=== PATIENT | female | born 1990 | race Caucasian/White ===

== ENCOUNTER 2019-06-15 17:15 | Inpatient (IN) | payer OTHER ==
[~2019-06-15] VITALS: Ht 167.6 cm; Wt 134.0 kg
[2019-06-15] MEDS: LACTATED RINGERS 1,000 ML IV SCH ×2 (05:00→21:00)
[~2019-06-15 17:15] MED LIST: PREN1TAB60 PO
[2019-06-15] MEDS ORDERED: OXYTOCIN 30U/ 0.9% NaCL 500ML 500 ML IV ONE (17:39)
[2019-06-15] MEDS ORDERED: D5%-LACTATED RINGERS 1,000 ML IV SCH (17:39)
[2019-06-15] MEDS ORDERED: LACTATED RINGERS 1,000 ML IV SCH (17:39)
[2019-06-15] MEDS ORDERED: FENTANYL/BUPIV./NS/PF 250 ML EPIDCONT SCH (17:45)
[2019-06-15] MEDS ORDERED: FENTANYL PF 100 MCG/2ML IV PRN (18:00)
[2019-06-15] MEDS ORDERED: ONDANSETRON 2MG/ML, 2ML IVPush PRN (18:00)
[2019-06-15] MEDS ORDERED: CALCIUM CARBONATE 500 MG TAB.CHEW PO PRN (18:00)
[2019-06-15] MEDS ORDERED: FENTANYL PF 500 MCG, BUPIVACAINE/PF 0.5%, 30ML 62.5 ML in SODIUM CHLORIDE 0.9% 177.5 ML EPIDCONT SCH ×2 (18:00→19:49)
[2019-06-15] MEDS ORDERED: FENTANYL PF 100 MCG/2ML IVPush PRN (18:00)
[2019-06-15] MEDS ORDERED: TERBUTALINE 1 MG/ML, 1ML IVPush PRN (18:00)
[2019-06-15] MEDS ORDERED: TERBUTALINE 1 MG/ML, 1ML SQ PRN (18:00)
[2019-06-15 18:45] LABS: BASOPHILS # (AUTO) 0.03 x10^3/uL (0-0.1); BASOPHILS % (AUTO) 0 % (0-1); EOSINOPHILS # (AUTO) 0.12 x10^3/uL (0-0.4); EOSINOPHILS % (AUTO) 1 % (1-7); LYMPHOCYTES # (AUTO) 1.84 x10^3/uL (1-3.4); LYMPHOCYTES % (AUTO) 20 % (22-44); MD NO; MEAN CORPUSCULAR HEMOGLOBIN 27.1 pg (27.0-34.8); MEAN CORPUSCULAR HGB CONC 33.3 g/dL (32.4-35.8); MEAN CORPUSCULAR VOLUME 81.3 fL (80-100); MEAN PLATELET VOLUME 8.4 fL (7.4-10.4); MONOCYTES # (AUTO) 0.38 x10^3/uL (0.2-0.8); MONOCYTES % (AUTO) 4 % (2-9); NEUTROPHILS # (AUTO) 6.65 x10^3/uL (1.8-6.8); NEUTROPHILS % (AUTO) 74 % (42-75); PLATELET COUNT 297 x10^3/uL (130-400); RED BLOOD COUNT 4.01 x10^6/uL (3.82-5.3); RED CELL DISTRIBUTION WIDTH 17.3 % (9.6-15.2)
[2019-06-15] MEDS ORDERED: NEWBORN KIT ONE (19:06)
[2019-06-15] MEDS ORDERED: OXYTOCIN 30U/ 0.9% NaCL 500ML 500 ML ONE (19:06)
[2019-06-15] MEDS ORDERED: BUPIVACAINE 0.25% ONE (19:51)
[2019-06-15] MEDS ORDERED: LACTATED RINGERS 1,000 ML IVBOLUS PRN (20:00)
[2019-06-15] MEDS ORDERED: NALOXONE 0.4 MG/ML, 1ML IVPush PRN (20:00)
[2019-06-15] MEDS ORDERED: EPHEDRINE 50 MG/ML, 1ML IVPush PRN (20:00)
[2019-06-15] MEDS ORDERED: OXYTOCIN 30U/ 0.9% NaCL 500ML 500 ML IV PRN (20:38)
[2019-06-16] MEDS ORDERED: ACETAMINOPHEN 325 MG TABLET ONE (08:51)
[2019-06-16] MEDS ORDERED: ACETAMINOPHEN 325 MG TABLET PO PRN ×3 (09:00→12:00)
[2019-06-16] MEDS ORDERED: OXYTOCIN 30U/ 0.9% NaCL 500ML 500 ML ONE (11:43)
[2019-06-16] MEDS: OXYTOCIN 30U/ 0.9% NaCL 500ML 500 ML IV SCH ×2 (11:44→21:44)
[2019-06-16] MEDS ORDERED: SIMETHICONE 80 MG CHEW TAB PO PRN (12:00)
[2019-06-16] MEDS ORDERED: MISOPROSTOL 200 MCG TABLET SL PRN (12:00)
[2019-06-16] MEDS ORDERED: OXYcodone/APAP 5/325MG TABLET PO PRN (12:00)
[2019-06-16] MEDS ORDERED: CARBOPROST TROMETHAMINE 250 MCG/ML, 1ML IM PRN (12:00)
[2019-06-16] MEDS ORDERED: METHYLERGONOVINE 0.2 MG/ML IM PRN (12:00)
[2019-06-16] MEDS ORDERED: IBUPROFEN 600 MG TABLET ONE (12:54)
[2019-06-16] MEDS: IBUPROFEN 600 MG TABLET PO PRN (12:55)
[2019-06-16 16:30] VITALS: BP 130/83
[2019-06-16 17:25] VITALS: BP 127/76
[2019-06-16 19:55] VITALS: BP 127/85
[2019-06-16 20:33] LABS: BASOPHILS # (AUTO) 0.03 x10^3/uL (0-0.1); BASOPHILS % (AUTO) 0 % (0-1); EOSINOPHILS # (AUTO) 0.11 x10^3/uL (0-0.4); EOSINOPHILS % (AUTO) 1 % (1-7); LYMPHOCYTES # (AUTO) 1.67 x10^3/uL (1-3.4); LYMPHOCYTES % (AUTO) 12 % (22-44); MEAN CORPUSCULAR HEMOGLOBIN 27.2 pg (27.0-34.8); MEAN CORPUSCULAR HGB CONC 33.4 g/dL (32.4-35.8); MEAN CORPUSCULAR VOLUME 81.4 fL (80-100); MEAN PLATELET VOLUME 8.4 fL (7.4-10.4); MONOCYTES # (AUTO) 0.67 x10^3/uL (0.2-0.8); MONOCYTES % (AUTO) 5 % (2-9); NEUTROPHILS # (AUTO) 11.93 x10^3/uL (1.8-6.8); NEUTROPHILS % (AUTO) 83 % (42-75); PLATELET COUNT 303 x10^3/uL (130-400); RED BLOOD COUNT 3.57 x10^6/uL (3.82-5.3); RED CELL DISTRIBUTION WIDTH 17.2 % (9.6-15.2)
[2019-06-16 20:34] LABS: MD NO
[2019-06-17 00:25] VITALS: BP 145/94
[2019-06-17 04:30] VITALS: BP 128/83
[2019-06-17] MEDS: OXYTOCIN 30U/ 0.9% NaCL 500ML 500 ML IV SCH ×2 (07:44→17:44)
[2019-06-17 08:00] VITALS: BP 135/87
[2019-06-17] MEDS: PRENATAL VIT/IRON/FA 1 EACH TABLET PO SCH (09:00)
[2019-06-17] MEDS: IBUPROFEN 600 MG TABLET PO PRN (19:16)
[2019-06-17] MEDS: DOCUSATE 100 MG CAPSULE PO PRN (19:16)
[2019-06-17 19:54] VITALS: BP 126/88
[2019-06-18] MEDS: IBUPROFEN 600 MG TABLET PO PRN ×4 (01:54→22:15)
[2019-06-18] MEDS: OXYTOCIN 30U/ 0.9% NaCL 500ML 500 ML IV SCH ×2 (03:44→13:44)
[2019-06-18 08:00] VITALS: BP 151/95
[2019-06-18] MEDS: DOCUSATE 100 MG CAPSULE PO PRN ×2 (08:32→22:15)
[2019-06-18] MEDS: PRENATAL VIT/IRON/FA 1 EACH TABLET PO SCH (08:32)
[2019-06-18 10:49] VITALS: BP 136/85
[2019-06-18 15:41] VITALS: BP 143/90
[2019-06-18 19:47] VITALS: BP 142/92
[2019-06-19 08:00] VITALS: BP 130/79
[2019-06-19] MEDS: IBUPROFEN 600 MG TABLET PO PRN (08:10)
[2019-06-19] MEDS: OXYcodone/APAP 5/325MG TABLET PO PRN ×2 (08:11→09:35)
[2019-06-19] MEDS: PRENATAL VIT/IRON/FA 1 EACH TABLET PO SCH (08:11)
[2019-06-19] MEDS: DOCUSATE 100 MG CAPSULE PO PRN (08:11)
[2019-06-19] MEDS ORDERED: IBUP-1222 PO (09:11)
[2019-06-19] MEDS ORDERED: PRED20TA PO (09:12)
== END 2019-06-19 10:10 | disposition home or self-care (01) | DRG 807 ==
LOC: LDOP 17:15 → LDIP 17:42 → 2NW 06-16 15:12 → LDIP 06-16 15:22 → 2NW 06-16 16:06
PROVIDERS: ADMIT Obstetrics & Gynecology Maternal & Fetal Medicine; ATTEND Obstetrics & Gynecology Maternal & Fetal Medicine
PROC: 10E0XZZ Delivery of Products of Conception, External Approach (ICD-10-PCS; principal; 2019-06-16)
PROC: 0KQM0ZZ Repair Perineum Muscle, Open Approach (ICD-10-PCS; 2019-06-16)
PROC: 3E0R3BZ Introduction of Anesthetic Agent into Spinal Canal, Percutaneous Approach (ICD-10-PCS; 2019-06-16)
PROC: 00HU33Z Insertion of Infusion Device into Spinal Canal, Percutaneous Approach (ICD-10-PCS; 2019-06-16)
DX: O99.214 Obesity complicating childbirth (principal); Z37.0 Single live birth; O70.1 Second degree perineal laceration during delivery; Z3A.39 39 weeks gestation of pregnancy; E66.9 Obesity, unspecified
CPT/HCPCS: 36415; 72190; S0020; 72148; 82962; 85025; 86592; 86850; 86900; G0378; J3010; J3490; J2590; J7050; J7120; J7512

== ENCOUNTER 2019-08-26 22:51 | Inpatient (IN) | payer OTHER ==
[~2019-08-26] VITALS: Ht 167.6 cm; Wt 116.0 kg
[~2019-08-26 22:51] MED LIST changes: +IBUP-1222 PO; +PRED20TA PO
--- NOTE | 2019-08-26 23:07 | NUR ---
EKG DONE IN TRIAGE. PT PROVIDED UA CUP FOR LOBBY WHILE WAITING FOR A ROOM
--- NOTE | 2019-08-26 23:27 | NUR ---
ASSUMED CARE OF PATIENT. PATIENT REPORTS BILATERAL LOWER ABD PAIN AND RIGHT FLANK PAIN WITH NAUSEA. VS STABLE. BLANKET GIVEN. NO ACUTE DISTRESS NOTED. WILL CONTINUE TO MONITOR.
[2019-08-26] MEDS ORDERED: ONDANSETRON 2MG/ML, 2ML IVPush ONE (23:30)
[2019-08-26] MEDS ORDERED: SODIUM CHLORIDE FLUSH 10ML SYR IVF ONE (23:30)
[2019-08-26] MEDS ORDERED: MORPHINE SULFATE 4 MG/ML, 1ML IVPush PRN (23:30)
[2019-08-26] MEDS ORDERED: SODIUM CHLORIDE 0.9% 1,000ML IVBOLUS ONE (23:30)
[2019-08-26] MEDS ORDERED: PROMETHAZINE 25 MG/ML, 1ML IM ONE (23:30)
[2019-08-26] MEDS ORDERED: ONDANSETRON 2MG/ML, 2ML ONE (23:49)
[2019-08-26] MEDS ORDERED: PROMETHAZINE 25 MG/ML, 1ML ONE (23:49)
[2019-08-26] MEDS ORDERED: MORPHINE SULFATE 4 MG/ML, 1ML ONE (23:50)
[2019-08-27] MEDS ORDERED: GABA300C10 PO (00:01)
--- NOTE | 2019-08-27 00:02 | NUR ---
CT PENDING NEG. BETA.
[2019-08-27 00:17] LABS: CULTURE INDICATED? NO; MICROSCOPIC NOT IND
[2019-08-27 00:29] LABS: BASOPHILS # (AUTO) 0.03 x10^3/uL (0-0.1); BASOPHILS % (AUTO) 0 % (0-1); EOSINOPHILS % (AUTO) 1 % (1-7); LYMPHOCYTES # (AUTO) 1.39 x10^3/uL (1-3.4); LYMPHOCYTES % (AUTO) 15 % (22-44); MD NO; MEAN CORPUSCULAR HGB CONC 32.8 g/dL (32.4-35.8); MEAN CORPUSCULAR VOLUME 79.2 fL (80-100); MEAN PLATELET VOLUME 8.7 fL (7.4-10.4); MONOCYTES # (AUTO) 0.62 x10^3/uL (0.2-0.8); MONOCYTES % (AUTO) 7 % (2-9); NEUTROPHILS % (AUTO) 78 % (42-75); PLATELET COUNT 303 x10^3/uL (130-400); RED BLOOD COUNT 4.29 x10^6/uL (3.82-5.3); RED CELL DISTRIBUTION WIDTH 16.8 % (9.6-15.2)
--- NOTE | 2019-08-27 00:30 | NUR ---
PT RESTING IN ROOM. NO ACUTE DISTRESS NOTED. CALL LIGHT IN PLACE. BLANKET AND PILLOW GIVEN AND LIGHTS TURNED DOWN FOR COMFORT. WILL CONTINUE TO MONITOR.
[2019-08-27 00:39] LABS: ALBUMIN 2.9 g/dL (3.4-5.0); ANION GAP 7 mmol/L (5-15); CALCIUM 8.4 mg/dL (8.5-10.1); CHLORIDE 106 mmol/L (98-107)
[2019-08-27 00:46] LABS: ALANINE AMINOTRANSFERASE 295 U/L (12-78); ALKALINE PHOSPHATASE 114 U/L (45-117); BILIRUBIN,TOTAL 2.7 mg/dL (0.2-1.0); CREATININE 0.72 mg/dL (0.55-1.02)
--- NOTE | 2019-08-27 01:15 | NUR ---
REPORT OF PT FROM KEKE MARSHALL AND ASSUMING CARE OF PT AT THIS TIME. [place] IN [facility] [place] THIS [place] FAMILY AT . PT APPEARS COMFORTABLE AT THIS TIME. WILL CONTINUE TO MONITOR PT. AWAITING ADMIT ORDERS.
--- NOTE | 2019-08-27 01:30 | NUR ---
REPORT GIVEN TO KEKE JAVIER
--- NOTE | 2019-08-27 02:54 | NUR ---
PT AMBULATES TO RESTROOM WITH STEADY GAIT. PT BACK IN [facility] AND REATTACHED TO VS MONITORS. VSS AT THIS TIME. ADMITTING HOSPITALIST AT FOR PT HISTORY AND ASSESSMENT.
--- NOTE | 2019-08-27 03:27 | NUR ---
REPORT OF PT TO KEKE FLORENTINO WHO IS TASK RN FOR THOM. ALL QUESTIONS ANSWERED. PT PREPARED FOR TRANSPORT FROM ED TO FLOOR. PT VERBALIZES UNDERSTANDING OF ROOM ASSIGNMENT. CHECO ANTONIO, AT BS FOR TRANSPORT OF PT TO FLOOR AT THIS TIME.
[2019-08-27 03:52] VITALS: BP 127/72
[2019-08-27] MEDS ORDERED: NORG1TAB6 PO (05:17)
[2019-08-27] MEDS: morphine SULFATE 10 MG/ML, 1ML IVPush PRN ×2 (05:58→09:00)
[2019-08-27] MEDS ORDERED: ONDANSETRON 2MG/ML, 2ML IVPush PRN (06:00)
[2019-08-27] MEDS ORDERED: SODIUM CHLORIDE 0.9% 2,000 ML IV SCH (06:00)
[2019-08-27] MEDS: NORGESTIMATE-ETHINYL ESTRADIOL TABLET PO SCH (07:08)
[2019-08-27 07:18] LABS: CHLORIDE 109 mmol/L (98-107)
[2019-08-27 07:32] LABS: ALANINE AMINOTRANSFERASE 267 U/L (12-78); ALBUMIN 2.6 g/dL (3.4-5.0); ALKALINE PHOSPHATASE 108 U/L (45-117); ANION GAP 5 mmol/L (5-15); BILIRUBIN,TOTAL 0.9 mg/dL (0.2-1.0); CALCIUM 8.2 mg/dL (8.5-10.1); CREATININE 0.59 mg/dL (0.55-1.02); TOTAL PROTEIN 6.5 g/dL (6.4-8.2)
[2019-08-27 08:00] VITALS: BP 130/82
[2019-08-27] MEDS ORDERED: POTASSIUM CHLORIDE 40 MEQ in SODIUM CHLORIDE 0.9% 500 ML IV ONE (09:00)
[2019-08-27 09:22] LABS: % IRON SATURATION 9 % (20-55); IRON LEVEL 29 mcg/dL (50-170); TOTAL IRON BINDING CAPACITY 318 mcg/dL (250-450); TRIGLYCERIDES 95 mg/dL (50-200)
[2019-08-27] MEDS: LACTATED RINGERS 1,000 ML IV SCH ×3 (10:18→22:17)
[2019-08-27 13:50] VITALS: BP 126/79
[2019-08-27] MEDS: OXYcodone/APAP 5/325MG TABLET PO PRN ×2 (15:03→21:23)
[2019-08-27] MEDS: CEFTRIAXONE PMX 1GM/50ML 50 ML IV SCH (16:28)
[2019-08-27] MEDS: GABAPENTIN 300 MG CAPSULE PO SCH ×2 (16:28→21:24)
[2019-08-27] MEDS: IRON SUCROSE COMPLEX 100MG/5ML IV SCH (16:29)
[2019-08-27] MEDS: METRONIDAZOLE PMX 500MG/100ML 100 ML IV SCH ×2 (17:32→23:11)
[2019-08-27 21:05] VITALS: BP 128/83
[2019-08-28 01:17] VITALS: BP 138/80
[2019-08-28] MEDS: morphine SULFATE 10 MG/ML, 1ML IVPush PRN ×3 (03:31→09:27)
[2019-08-28] MEDS: LACTATED RINGERS 1,000 ML IV SCH ×3 (04:41→17:16)
[2019-08-28] MEDS: METRONIDAZOLE PMX 500MG/100ML 100 ML IV SCH ×4 (05:47→18:15)
[2019-08-28 06:18] LABS: BASOPHILS # (AUTO) 0.02 x10^3/uL (0-0.1); BASOPHILS % (AUTO) 0 % (0-1); EOSINOPHILS # (AUTO) 0.43 x10^3/uL (0-0.4); EOSINOPHILS % (AUTO) 6 % (1-7); LYMPHOCYTES # (AUTO) 2.02 x10^3/uL (1-3.4); LYMPHOCYTES % (AUTO) 30 % (22-44); MD NO; MEAN CORPUSCULAR HGB CONC 32.4 g/dL (32.4-35.8); MEAN CORPUSCULAR VOLUME 80.2 fL (80-100); MEAN PLATELET VOLUME 8.3 fL (7.4-10.4); MONOCYTES # (AUTO) 0.36 x10^3/uL (0.2-0.8); MONOCYTES % (AUTO) 5 % (2-9); NEUTROPHILS # (AUTO) 3.97 x10^3/uL (1.8-6.8); NEUTROPHILS % (AUTO) 58 % (42-75); PLATELET COUNT 270 x10^3/uL (130-400); RED BLOOD COUNT 4.04 x10^6/uL (3.82-5.3); RED CELL DISTRIBUTION WIDTH 16.4 % (9.6-15.2)
[2019-08-28 06:30] LABS: CHLORIDE 108 mmol/L (98-107)
[2019-08-28 06:33] LABS: ANION GAP 7 mmol/L (5-15); CALCIUM 8.7 mg/dL (8.5-10.1); CREATININE 0.47 mg/dL (0.55-1.02)
[2019-08-28 07:18] VITALS: BP 129/83
[2019-08-28] MEDS: GABAPENTIN 300 MG CAPSULE PO SCH ×3 (09:00→22:19)
[2019-08-28] MEDS: NORGESTIMATE-ETHINYL ESTRADIOL TABLET PO SCH (09:00)
[2019-08-28] MEDS ORDERED: MIDAZOLAM 1 MG/ML, 2ML ONE (10:23)
[2019-08-28] MEDS ORDERED: FENTANYL PF 250 MCG/5ML ONE (10:23)
[2019-08-28] MEDS ORDERED: PROPOFOL 10 MG/ML, 20ML ONE (10:24)
[2019-08-28] MEDS ORDERED: OMNIPAQUE 350 MG/ML, 50 ML BOTTLE ONE (10:35)
[2019-08-28 10:40] LABS: HCG UR SG 1.008 (1.003-1.030)
[2019-08-28] MEDS ORDERED: HALOPERIDOL 5 MG/ML IV PRN (11:00)
[2019-08-28] MEDS ORDERED: OXYcodone 5 MG/5 ML ORAL.SOL UDC PO PRN (11:00)
[2019-08-28] MEDS ORDERED: HYDROmorphone 2 MG/ML, 1ML IVPush PRN (11:00)
[2019-08-28] MEDS ORDERED: MORPHINE SULFATE 4 MG/ML, 1ML IVPush PRN (11:00)
[2019-08-28] MEDS ORDERED: PROMETHAZINE 25 MG/ML, 1ML IV PRN (11:00)
[2019-08-28] MEDS ORDERED: FENTANYL PF 100 MCG/2ML IV PRN (11:00)
[2019-08-28] MEDS ORDERED: MEPERIDINE/PF 25MG/ML,1ML IVPush PRN (11:00)
[2019-08-28] MEDS ORDERED: OXYcodone 5 MG/5 ML ORAL.SOL UDC ONE (11:56)
[2019-08-28 14:45] VITALS: BP 126/88
[2019-08-28] MEDS: IRON SUCROSE COMPLEX 100MG/5ML IV SCH (17:14)
[2019-08-28] MEDS: CEFTRIAXONE PMX 1GM/50ML 50 ML IV SCH (17:14)
[2019-08-28] MEDS: OXYcodone/APAP 5/325MG TABLET PO PRN (17:53)
[2019-08-28 21:38] VITALS: BP 118/69
[2019-08-29] MEDS: OXYcodone/APAP 5/325MG TABLET PO PRN ×2 (00:05→13:00)
[2019-08-29] MEDS: METRONIDAZOLE PMX 500MG/100ML 100 ML IV SCH ×2 (00:19→06:15)
[2019-08-29 00:44] VITALS: BP 128/82
[2019-08-29 04:28] VITALS: BP 132/80
[2019-08-29] MEDS: LACTATED RINGERS 1,000 ML IV SCH ×2 (04:32→11:00)
[2019-08-29] MEDS ORDERED: THROMBIN 5,000 UNIT VIAL TP ONE (05:22)
[2019-08-29] MEDS ORDERED: BUPIVACAINE/PF-EPI 0.5% 1:200K ONE (05:22)
[2019-08-29 05:26] LABS: BASOPHILS # (AUTO) 0.03 x10^3/uL (0-0.1); BASOPHILS % (AUTO) 0 % (0-1); EOSINOPHILS # (AUTO) 0.01 x10^3/uL (0-0.4); EOSINOPHILS % (AUTO) 0 % (1-7); LYMPHOCYTES # (AUTO) 1.39 x10^3/uL (1-3.4); LYMPHOCYTES % (AUTO) 17 % (22-44); MD NO; MEAN CORPUSCULAR HEMOGLOBIN 25.9 pg (27.0-34.8); MEAN CORPUSCULAR HGB CONC 32.5 g/dL (32.4-35.8); MEAN CORPUSCULAR VOLUME 79.7 fL (80-100); MEAN PLATELET VOLUME 8.6 fL (7.4-10.4); MONOCYTES # (AUTO) 0.41 x10^3/uL (0.2-0.8); MONOCYTES % (AUTO) 5 % (2-9); NEUTROPHILS # (AUTO) 6.58 x10^3/uL (1.8-6.8); NEUTROPHILS % (AUTO) 78 % (42-75); PLATELET COUNT 339 x10^3/uL (130-400); RED BLOOD COUNT 4.06 x10^6/uL (3.82-5.3); RED CELL DISTRIBUTION WIDTH 16.6 % (9.6-15.2)
[2019-08-29] MEDS ORDERED: FENTANYL PF 250 MCG/5ML ONE (05:34)
[2019-08-29] MEDS ORDERED: MIDAZOLAM 1 MG/ML, 2ML ONE (05:34)
[2019-08-29 05:35] LABS: ALBUMIN 2.7 g/dL (3.4-5.0); ANION GAP 8 mmol/L (5-15); CHLORIDE 107 mmol/L (98-107)
[2019-08-29] MEDS ORDERED: KETOROLAC 30 MG/1 ML ONE (05:37)
[2019-08-29 05:39] LABS: ALANINE AMINOTRANSFERASE 137 U/L (12-78); ALKALINE PHOSPHATASE 87 U/L (45-117); BILIRUBIN,TOTAL 0.6 mg/dL (0.2-1.0); CREATININE 0.53 mg/dL (0.55-1.02); TOTAL PROTEIN 7.1 g/dL (6.4-8.2)
[2019-08-29] MEDS ORDERED: CEFOTETAN PMX 2GM/50ML 50 ML ONE (05:47)
[2019-08-29] MEDS ORDERED: CHLORHEXIDINE 15 ML UDC ONE (05:57)
[2019-08-29] MEDS ORDERED: PROMETHAZINE 25 MG/ML, 1ML IV PRN (06:00)
[2019-08-29] MEDS ORDERED: MORPHINE SULFATE 4 MG/ML, 1ML IVPush PRN (06:00)
[2019-08-29] MEDS ORDERED: HALOPERIDOL 5 MG/ML IV PRN (06:00)
[2019-08-29] MEDS ORDERED: MEPERIDINE/PF 25MG/ML,1ML IVPush PRN (06:00)
[2019-08-29] MEDS ORDERED: hydrALAzine 20 MG/ML, 1ML IV PRN (06:00)
[2019-08-29] MEDS ORDERED: OXYcodone 5 MG/5 ML ORAL.SOL UDC PO PRN (06:00)
[2019-08-29] MEDS ORDERED: LABETALOL 5MG/ML, 20ML IV PRN (06:00)
[2019-08-29] MEDS ORDERED: ACETAMINOPHEN 325 MG TABLET PO PRN (06:00)
[2019-08-29] MEDS ORDERED: ONDANSETRON 2MG/ML, 2ML ONE (06:20)
[2019-08-29] MEDS ORDERED: ROCURONIUM 10MG/ML,5ML ONE (06:20)
[2019-08-29] MEDS ORDERED: GLYCOPYRROLATE 0.2MG/1ML, 5ML ONE (06:20)
[2019-08-29] MEDS ORDERED: NEOSTIGMINE 1 MG/ML, 10ML ONE (06:20)
[2019-08-29] MEDS ORDERED: CEFAZOLIN 1,000 MG ONE (06:20)
[2019-08-29] MEDS ORDERED: DEXAMETHASONE 4 MG/ML, 1ML ONE (06:20)
[2019-08-29] MEDS ORDERED: PROPOFOL 10 MG/ML, 20ML ONE (06:20)
[2019-08-29] MEDS ORDERED: FENTANYL PF 100 MCG/2ML ONE ×2 (06:41→07:09)
[2019-08-29] MEDS ORDERED: OXYcodone 5 MG/5 ML ORAL.SOL UDC ONE (07:09)
[2019-08-29] MEDS: FENTANYL PF 100 MCG/2ML IV PRN ×2 (07:15→07:21)
[2019-08-29] MEDS ORDERED: HYDROmorphone 1 MG/ML, 1ML INJ ONE (07:22)
[2019-08-29] MEDS: HYDROmorphone 2 MG/ML, 1ML IVPush PRN ×2 (07:28→07:36)
[2019-08-29] MEDS ORDERED: ACETAMINOPHEN 650 MG/20.3 ML UDC ONE (07:51)
[2019-08-29] MEDS ORDERED: AMOXICILLIN/CLAV 875-125MG TABLET PO SCH (09:00)
[2019-08-29] MEDS: GABAPENTIN 300 MG CAPSULE PO SCH (10:11)
[2019-08-29] MEDS: NORGESTIMATE-ETHINYL ESTRADIOL TABLET PO SCH (10:12)
[2019-08-29] MEDS ORDERED: OXYC-302 PO (10:42)
[2019-08-29] MEDS ORDERED: POLY17PO5 PO (10:43)
[2019-08-29] MEDS ORDERED: AMOX1TAB12 PO (11:43)
[2019-08-29] MEDS ORDERED: FERR324T5 PO (11:43)
[2019-08-29] MEDS ORDERED: ONDA4TAB7 PO (11:43)
[2019-08-29 13:06] VITALS: BP 134/89
== END 2019-08-29 14:23 | disposition home or self-care (01) | DRG 417 ==
LOC: ED 23:41 → EDIP 08-27 02:38 → 4NE 08-27 03:35
PROVIDERS: ATTEND Internal Medicine
PROC: 0FC98ZZ Extirpation of Matter from Common Bile Duct, Via Natural or Artificial Opening Endoscopic (ICD-10-PCS; 2019-08-28)
PROC: BF131ZZ Fluoroscopy of Gallbladder and Bile Ducts using Low Osmolar Contrast (ICD-10-PCS; 2019-08-28)
PROC: 0FT44ZZ Resection of Gallbladder, Percutaneous Endoscopic Approach (ICD-10-PCS; principal; 2019-08-29 06:00)
DX: K80.61 Calculus of gallbladder and bile duct with cholecystitis, unspecified, with obstruction (principal); K85.10 Biliary acute pancreatitis without necrosis or infection; Z68.41 Body mass index [BMI] 40.0-44.9, adult; D50.9 Iron deficiency anemia, unspecified; G57.90 Unspecified mononeuropathy of unspecified lower limb; E87.6 Hypokalemia; E66.01 Morbid (severe) obesity due to excess calories; D64.9 Anemia, unspecified; E80.6 Other disorders of bilirubin metabolism; R79.89 Other specified abnormal findings of blood chemistry; Z71.3 Dietary counseling and surveillance
CPT/HCPCS: 36415; 74181; 74328; 76700; 80048; 80053; 80307; 81003; 81025; 82728; 83540; 83550; 83690; 84478; 84703; 85025; 87040; 88304; 93005; 96361; 96372; 96374; G0378; J0690; J0696; J1100; J1170; J1756; J1885; J2250; J2405; J2550; J2704; J2710; J3010; J3480; Q9967; C1769; J2270; J3490; J7030; J7040; J7120

== ENCOUNTER → 2019-11-17 | Outpatient (CLI) | payer OTHER ==
[~2019-11-17] MED LIST changes: +AMOX1TAB12 PO; +FERR324T5 PO; +GABA300C10 PO; +GADOTERATE 10 MMOL/20 ML SYR ONE; +NORG1TAB6 PO; +ONDA4TAB7 PO; +OXYC-302 PO; +POLY17PO5 PO
== END | disposition home or self-care (01) ==
LOC: CFH 12:43
PROVIDERS: ATTEND Psychiatry & Neurology Neurology
DX: M51.27 Other intervertebral disc displacement, lumbosacral region (principal); M47.817 Spondylosis without myelopathy or radiculopathy, lumbosacral region; M48.07 Spinal stenosis, lumbosacral region
CPT/HCPCS: 72157; 72158; A9575

== ENCOUNTER 2019-11-29 11:57 | Emergency (ER) | payer OTHER ==
[~2019-11-29] VITALS: Ht 170.2 cm; Wt 112.6 kg
[~2019-11-29 11:57] MED LIST changes: -GADOTERATE 10 MMOL/20 ML SYR ONE
--- NOTE | 2019-11-29 12:35 | NUR ---
Assumed care of patient. C/O RLQ pain radiating to right flank since Satuday. C/O N/V. Will continue to monitor.
[2019-11-29 12:59] LABS: HCG UR SG 1.006 (1.003-1.030); MICROSCOPIC NOT IND
[2019-11-29] MEDS ORDERED: SODIUM CHLORIDE FLUSH 10ML SYR IVF ONE (13:00)
[2019-11-29] MEDS ORDERED: MORPHINE SULFATE 4 MG/ML, 1ML IVPush PRN (13:00)
[2019-11-29] MEDS ORDERED: ONDANSETRON 2MG/ML, 2ML IVPush ONE (13:00)
[2019-11-29] MEDS ORDERED: MORPHINE SULFATE 4 MG/ML, 1ML ONE (13:11)
[2019-11-29] MEDS ORDERED: ONDANSETRON 2MG/ML, 2ML ONE (13:11)
[2019-11-29 13:31] LABS: BASOPHILS # (AUTO) 0.04 x10^3/uL (0-0.1); BASOPHILS % (AUTO) 0 % (0-1); EOSINOPHILS # (AUTO) 0.23 x10^3/uL (0-0.4); EOSINOPHILS % (AUTO) 2 % (1-7); LYMPHOCYTES # (AUTO) 1.98 x10^3/uL (1-3.4); LYMPHOCYTES % (AUTO) 17 % (22-44); MD NO; MEAN CORPUSCULAR HEMOGLOBIN 26.9 pg (27.0-34.8); MEAN CORPUSCULAR HGB CONC 32.5 g/dL (32.4-35.8); MEAN PLATELET VOLUME 8.2 fL (7.4-10.4); MONOCYTES # (AUTO) 0.62 x10^3/uL (0.2-0.8); MONOCYTES % (AUTO) 5 % (2-9); NEUTROPHILS # (AUTO) 9.13 x10^3/uL (1.8-6.8); NEUTROPHILS % (AUTO) 76 % (42-75); PLATELET COUNT 399 x10^3/uL (130-400); RED BLOOD COUNT 4.64 x10^6/uL (3.82-5.3); RED CELL DISTRIBUTION WIDTH 14.1 % (9.6-15.2)
[2019-11-29 13:43] LABS: ALANINE AMINOTRANSFERASE 22 U/L (12-78); ALBUMIN 3.5 g/dL (3.4-5.0); ANION GAP 10 mmol/L (5-15); CALCIUM 8.8 mg/dL (8.5-10.1); CHLORIDE 103 mmol/L (98-107); CREATININE 1.08 mg/dL (0.55-1.02)
[2019-11-29 13:45] LABS: ALKALINE PHOSPHATASE 55 U/L (45-117); BILIRUBIN,TOTAL 0.5 mg/dL (0.2-1.0); TOTAL PROTEIN 8.4 g/dL (6.4-8.2)
--- NOTE | 2019-11-29 13:52 | NUR ---
Patient reports decreased pain. Refusing pain meds at this time. VSS.
[2019-11-29] MEDS ORDERED: KETOROLAC 30 MG/1 ML ONE (14:39)
--- NOTE | 2019-11-29 14:47 | NUR ---
Toradol admin. No other needs.
[2019-11-29] MEDS ORDERED: OMNIPAQUE 350 MG/ML, 100ML BOTTLE ONE (14:48)
[2019-11-29] MEDS ORDERED: KETOROLAC 30 MG/1 ML IVPush ONE (15:00)
[2019-11-29 15:05] VITALS: BP 127/73
--- NOTE | 2019-11-29 15:06 | NUR ---
Patient/Caregiver given discharge instructions and they have confirmed that they understand the instructions. Patient ambulatory with steady gait.
== END 2019-11-29 15:08 | disposition home or self-care (01) ==
LOC: ED 13:27
DX: N20.1 Calculus of ureter (principal); R11.2 Nausea with vomiting, unspecified
CPT/HCPCS: 36415; 74177; 80053; 81003; 81025; 85025; 96374; 96375; 99285; J1885; J2270; J2405; Q9967

== ENCOUNTER 2020-05-30 17:37 | Inpatient (IN) | payer OTHER ==
[~2020-05-30] VITALS: Ht 170.2 cm; Wt 116.2 kg
[~2020-05-30 17:37] MED LIST changes: -OXYC-302 PO; +OXYC1TAB14 PO
[2020-05-30] MEDS ORDERED: SODIUM CHLORIDE FLUSH 10ML SYR IVF ONE (18:00)
[2020-05-30] MEDS ORDERED: SODIUM CHLORIDE 0.9% 1,000ML IVBOLUS ONE (18:00)
--- NOTE | 2020-05-30 18:14 | NUR ---
PT C/O CHEST INTERMITTENT CP AND SOB SINCE DIAGNOSED WITH COVID ON 05/13/20.
[2020-05-30 18:15] LABS: BASOPHILS % (AUTO) 1 % (0-1); EOSINOPHILS % (AUTO) 3 % (1-7); LYMPHOCYTES % (AUTO) 30 % (22-44); MEAN CORPUSCULAR HEMOGLOBIN 27.5 pg (27.0-34.8); MEAN PLATELET VOLUME 8.1 fL (7.4-10.4); MONOCYTES % (AUTO) 6 % (2-9); NEUTROPHILS % (AUTO) 62 % (42-75); PLATELET COUNT 322 x10^3/uL (130-400); RED CELL DISTRIBUTION WIDTH 14.5 % (9.6-15.2)
[2020-05-30 18:16] LABS: MD NO
[2020-05-30 18:27] LABS: ALANINE AMINOTRANSFERASE 35 U/L (12-78); ALBUMIN 3.2 g/dL (3.4-5.0); ANION GAP 6 mmol/L (5-15); CALCIUM 8.4 mg/dL (8.5-10.1); CHLORIDE 108 mmol/L (98-107); CREATININE 0.73 mg/dL (0.55-1.02)
[2020-05-30 18:31] LABS: ALKALINE PHOSPHATASE 62 U/L (45-117); BILIRUBIN,TOTAL 0.2 mg/dL (0.2-1.0); TOTAL PROTEIN 7.8 g/dL (6.4-8.2); TROPONIN I < 0.015 ng/mL (0.000-0.045)
--- NOTE | 2020-05-30 18:37 | NUR ---
IV PLACED, IV FLUIDS INFUSING.
--- NOTE | 2020-05-30 19:19 | NUR ---
PT IN CT.
[2020-05-30] MEDS ORDERED: OMNIPAQUE 350 MG/ML, 100ML BOTTLE ONE (19:33)
[2020-05-30 20:17] LABS: MICROSCOPIC NOT IND
[2020-05-30 20:19] LABS: INTERNATIONAL NORMALIZED RATIO 0.94 (0.93-1.1); PROTHROMBIN TIME 10.1 Seconds (9.6-11.5)
--- NOTE | 2020-05-30 20:27 | NUR ---
LOVENOX REQUESTED FROM PHARMACY.
[2020-05-30] MEDS ORDERED: ENOXAPARIN 120MG/0.8ML SQ ONE (20:30)
[2020-05-30] MEDS ORDERED: LABETALOL 5MG/ML, 20ML IVPush PRN (21:30)
[2020-05-30] MEDS ORDERED: ACETAMINOPHEN 325 MG TABLET PO PRN (21:30)
[2020-05-30] MEDS ORDERED: ONDANSETRON 2MG/ML, 2ML IVPush PRN (21:30)
[2020-05-30] MEDS ORDERED: MELATONIN 5 MG TABLET PO PRN (21:30)
--- NOTE | 2020-05-30 21:46 | NUR ---
REPORT GIVEN TO CARINA DAVIES.
[2020-05-30 22:38] VITALS: BP 150/95
[2020-05-31 00:26] VITALS: BP 122/74
[2020-05-31 01:28] LABS: TROPONIN I < 0.015 ng/mL (0.000-0.045)
[2020-05-31 05:25] LABS: BASOPHILS % (AUTO) 0 % (0-1); EOSINOPHILS % (AUTO) 3 % (1-7); LYMPHOCYTES % (AUTO) 41 % (22-44); MEAN CORPUSCULAR HEMOGLOBIN 27.3 pg (27.0-34.8); MEAN CORPUSCULAR HGB CONC 33.5 g/dL (32.4-35.8); MEAN PLATELET VOLUME 8.3 fL (7.4-10.4); MONOCYTES % (AUTO) 5 % (2-9); NEUTROPHILS % (AUTO) 50 % (42-75); PLATELET COUNT 282 x10^3/uL (130-400); RED BLOOD COUNT 4.24 x10^6/uL (3.82-5.3); RED CELL DISTRIBUTION WIDTH 14.6 % (9.6-15.2)
[2020-05-31 05:26] LABS: MD NO
[2020-05-31 05:38] LABS: ANION GAP 5 mmol/L (5-15); CALCIUM 8.3 mg/dL (8.5-10.1); CHLORIDE 110 mmol/L (98-107)
[2020-05-31 05:45] LABS: CREATININE 0.56 mg/dL (0.55-1.02); TROPONIN I < 0.015 ng/mL (0.000-0.045)
[2020-05-31 07:09] VITALS: BP 137/87
[2020-05-31] MEDS ORDERED: RIVAROXABAN 15 MG TABLET PO SCH (08:00)
[2020-05-31] MEDS ORDERED: ENOXAPARIN 120MG/0.8ML SQ SCH (08:30)
[2020-05-31 14:11] VITALS: BP 134/85
[2020-05-31] MEDS ORDERED: RIVA15TA PO (14:30)
[2020-05-31] MEDS ORDERED: RIVA20TA PO ×3 (14:34→14:40)
== END 2020-05-31 16:39 | disposition home or self-care (01) | DRG 176 ==
LOC: ED 19:29 → INTOOBSV 20:26 → EDIP 20:26 → OBSVTOIN 20:26 → 4WST 22:20 → DCLOUNGE 05-31 16:26
PROVIDERS: ADMIT Family Medicine; ATTEND Hospitalist
DX: I26.99 Other pulmonary embolism without acute cor pulmonale (principal); Z68.41 Body mass index [BMI] 40.0-44.9, adult; E04.9 Nontoxic goiter, unspecified; E66.9 Obesity, unspecified; Z83.3 Family history of diabetes mellitus; Z90.49 Acquired absence of other specified parts of digestive tract; J45.20 Mild intermittent asthma, uncomplicated; Z86.16 Personal history of COVID-19
CPT/HCPCS: 36415; 71275; 80048; 80053; 81003; 83036; 83690; 84443; 84484; 84703; 85025; 85610; 85730; 93005; 93306; 93356; 93970; G0378; J1650; J2405; Q9967; J7030

== ENCOUNTER 2020-08-07 15:54 | Emergency (ER) | payer OTHER ==
[~2020-08-07] VITALS: Ht 170.2 cm; Wt 122.3 kg
[~2020-08-07 15:54] MED LIST changes: +RIVA15TA PO; +RIVA20TA PO
--- NOTE | 2020-08-07 16:28 | NUR ---
PT STATES SINCE YESTERDAY SHE HAS BEEN FEELING PULSES IN LEFT CHEST. REPORTS SAYING SOMETIMES IT VAGUE, SHARP, AND DULL FEELING. DENIES SOB, HEADACHE, AND TNIGLING AND NUMBNESS. STATES IT FEELS LIKE HER PE BACK IN MAY. CURRENTLY TAKING XERALTO.
--- NOTE | 2020-08-07 16:30 | NUR ---
PT REPORTS HAVING ROOT CANAL DONE LAST WEEK ON FRIDAY.
--- NOTE | 2020-08-07 16:31 | NUR ---
PT REPORTS TAKING ABX FOR TWO DAYS AND NOT FINISHING IT.
--- NOTE | 2020-08-07 16:40 | NUR ---
HAD COVID SHOT LAST FRIDAY.
[2020-08-07] MEDS ORDERED: SODIUM CHLORIDE FLUSH 10ML SYR IVF ONE (17:30)
[2020-08-07 18:17] LABS: BASOPHILS % (AUTO) 0 % (0-1); EOSINOPHILS % (AUTO) 5 % (1-7); LYMPHOCYTES % (AUTO) 28 % (22-44); MEAN CORPUSCULAR HEMOGLOBIN 25.5 pg (27.0-34.8); MEAN PLATELET VOLUME 7.7 fL (7.4-10.4); MONOCYTES % (AUTO) 8 % (2-9); NEUTROPHILS % (AUTO) 59 % (42-75); PLATELET COUNT 392 x10^3/uL (130-400); RED CELL DISTRIBUTION WIDTH 14.4 % (9.6-15.2)
[2020-08-07 18:19] LABS: MD NO
[2020-08-07 18:20] LABS: ALBUMIN 3.5 g/dL (3.4-5.0); ANION GAP 5 mmol/L (5-15); CALCIUM 8.9 mg/dL (8.5-10.1); CHLORIDE 109 mmol/L (98-107)
[2020-08-07 18:32] LABS: ALANINE AMINOTRANSFERASE 43 U/L (12-78); ALKALINE PHOSPHATASE 73 U/L (45-117); BILIRUBIN,TOTAL 0.1 mg/dL (0.2-1.0); CREATININE 0.61 mg/dL (0.55-1.02); FREE T4 (FREE THYROXINE) 0.98 ng/dL (0.76-1.46); TOTAL PROTEIN 7.8 g/dL (6.4-8.2); TROPONIN I < 0.015 ng/mL (0.000-0.045)
--- NOTE | 2020-08-07 18:58 | NUR ---
PT IS OFF UNIT IN IMAGING
[2020-08-07] MEDS ORDERED: OMNIPAQUE 350 MG/ML, 100ML BOTTLE ONE (19:17)
[2020-08-07 19:50] VITALS: BP 145/100
== END 2020-08-07 19:58 | disposition home or self-care (01) ==
LOC: ED 18:26
DX: D50.9 Iron deficiency anemia, unspecified (principal); R07.89 Other chest pain; E04.1 Nontoxic single thyroid nodule; R94.31 Abnormal electrocardiogram [ECG] [EKG]
CPT/HCPCS: 36415; 71275; 80053; 83880; 84439; 84443; 84484; 85025; 93005; 99285; Q9967

== ENCOUNTER 2020-10-19 12:41 | Outpatient (CLI) | payer OTHER ==
[2020-10-19] MEDS ORDERED: LIDOCAINE-MPF 1%, 5ML ONE (12:52)
== END 2020-10-19 23:59 | disposition home or self-care (01) ==
LOC: RAD 12:41
PROVIDERS: ATTEND Family Medicine
DX: E04.1 Nontoxic single thyroid nodule (principal)
CPT/HCPCS: 10005; 60100; 76942; 88112; 88173; 88305

== ENCOUNTER 2021-01-23 12:55 | Outpatient (CLI) | payer OTHER ==
[~2021-01-23 12:55] MED LIST changes: +OXYC1TAB12 PO; -OXYC1TAB14 PO
[2021-01-23] MEDS ORDERED: OMNIPAQUE 350 MG/ML, 100ML BOTTLE ONE (13:32)
== END 2021-01-23 23:59 | disposition home or self-care (01) ==
LOC: CFH 12:55
PROVIDERS: ATTEND Family Medicine
DX: I26.99 Other pulmonary embolism without acute cor pulmonale (principal)
CPT/HCPCS: 71275; Q9967